=== PATIENT | male | born 1980 | race Caucasian/White ===

== ENCOUNTER → 2017-04-03 | Outpatient (CLI) | payer OTHER | LOC: BMCIMAGING 14:04 | PROVIDERS: ATTEND Family Medicine | DX: S62.627A Displaced fracture of middle phalanx of left little finger, initial encounter for closed fracture (principal); S69.82XA Other specified injuries of left wrist, hand and finger(s), initial encounter ==

== ENCOUNTER → 2017-04-18 | Outpatient (CLI) | payer OTHER | LOC: BMCIMAGING 13:18 | PROVIDERS: ATTEND Physician Assistant | DX: S62.647D Nondisplaced fracture of proximal phalanx of left little finger, subsequent encounter for fracture with routine healing (principal) ==